=== PATIENT | female | born 1985 | race Caucasian/White ===

== ENCOUNTER 2017-06-30 17:09 | Observation (INO) | payer MEDICAID ==
[~2017-06-30] VITALS: Ht 160 cm; Wt 56.4 kg
[~2017-06-30 17:09] MED LIST: ARAV10TA PO; CLIN1GEL TOPICAL; HYDR200T3 PO; HYDR50CA PO; PRED5TAB PO; TRAZ50TA12 PO
[2017-06-30 17:56] VITALS: BP 100/55; PULSE 80; RESP 18; TEMP 98.7; O2SAT 100
--- NOTE | 2017-06-30 18:55 | RADRPT ---
EXAM DATE/TIME: 06/30/2017 18:20 [place] COMPARISON: No previous studies available for comparison. INDICATIONS : Left side chest pain. MEDICAL HISTORY : None. SURGICAL HISTORY : None. ENCOUNTER: Initial ACUITY: 1 day PAIN SCORE: 6/10 LOCATION: Left chest FINDINGS: PA and lateral views of the chest demonstrate the lungs to be symmetrically aerated without evidence of mass, infiltrate or effusion. The cardiomediastinal contours are unremarkable. Osseous structure s are intact. CONCLUSION: No acute disease. Joseph Soriano MD on June 30, 2017 at 18:53 Board Certified Radiologist. This report was verified electronically.
--- NOTE | 2017-06-30 19:15 | PD ---
HPI Chief Complaint: Chest Pain Time Seen by Provider: 19:09 Travel History International Travel<30 days: No Contact w/Intl Traveler<30days: No Traveled to known affect area: No History of Present Illness HPI The patient is a 32 year old female who presents to the [facility] emergency department with a history of chest pain that began at 9 AM. It is a pressure sensation in the left side of the upper chest that radiates to the left shoulder. It is constant. It is an 8/10 in severity. It is worse with movement and better with lying still. She denies ever having a pain like this previously. She denies having any personal history of coronary artery disease. She denies having any history of hypertension, hyperlipidemia, or diabetes mellitus. She does report having a family history of heart disease specifically in her uncle. She denies having any personal history of DVT or PE. She denies having any lower extremity edema, calf pain, or erythema. She denies having any family history of blood clots. On review of systems otherwise , she denies having any known recent fevers, cough or congestion, neck pain, abdominal pain, vomiting, diarrhea, urinary symptoms, or neurologic symptoms. LMP: 2016, s/p endometrial ablation [facility] Past Medical History Narrative Medical The patient's past medical history is significant for arthritis-unsure of type, however she discontinued all medication 6 months ago that were treating this, multiple gynecologic problems-unsure of diagnosis. Cancer: No Cardiovascular Problems: No Diabetes: No Endocrine: No Genitourinary: No Hepatitis: No Hiatal Hernia: No Immune Disorder: No Musculoskeletal: No Neurologic: No Psychiatric: No Reproductive: No Respiratory: No Thyroid Disease: No Influenza Vaccination: No ?: Not Tubal Ligation: Yes Past Surgical History Narrative Surgical The patient's past surgical history is significant for breast augmentation, bilateral tubal ligation, laparoscopy for tube and ovary, and right shoulder surgery. AICD: No Body Medical Devices: breast implants Genitourinary Surgery: Yes (lap) Joint Replacement: No Pacemaker: No Other Surgery: Yes Social History Alcohol Use: No Tobacco Use: Yes (04/07 PPD) Substance Use: No Allergies-Medications (Allergen,Severity, Reaction): Coded Allergies: No Known Allergies (Unverified , 06/23/16) Reported Meds & Prescriptions Reported Meds & Active Scripts Active Hydroxyzine Pamoate 50 Mg Cap 50 Mg PO HS Take one tab at night to help with sleep. Do not take multiple sleep medications or sedatives at the same time. Clindamax Topical (Clindamycin Phosphate) 1% Gel 1 Applic TOPICAL BID Reported Hydroxychloroquine (Hydroxychloroquine Sulfate) 200 Mg Tab 200 Mg PO BID Takw with food Arava (Leflunomide) 10 Mg Tab 10 Mg PO DAILY Trazodone (Trazodone HCl) 50 Mg Tab 50 Mg PO HS Prednisone 5 Mg Tab 5 Mg PO TID Review of Systems Except as stated in HPI: all other systems reviewed are Neg General / Constitutional: No: Fever Eyes: No: Visual changes HENT: No: Headaches Cardiovascular: Positive: Chest Pain or Discomfort Respiratory: Positive: Shortness of Breath Gastrointestinal: No: Abdominal Pain Genitourinary: No: Dysuria Musculoskeletal: No: Pain Skin: No Rash Neurologic: No: Weakness Psychiatric: No: Depression Endocrine: No: Polydipsia Hematologic/Lymphatic: No: Easy Bruising Physical Exam Narrative General: The patient is a well-developed well-nourished female in no acute distress. Head and Neck exam: Head is normocephalic atraumatic. Eyes: EOMI, pupils are equal round and reactive to light. Nose: Midline septum with pink mucous membranes Mouth: Dentition unremarkable. Moist mucus membranes. Posterior oropharynx is not erythematous. No tonsillar hypertrophy. Uvula midline. Airway patent. Neck: No palpable lymphadenopathy. No nuchal rigidity. No thyromegaly. Cardiovascular: Regular rate and rhythm without murmurs, gallops, or rubs. No pulse deficit to the extremities on simultaneous auscultation and palpation of her radial artery. The patient reports chest wall tenderness on palpation along the upper chest on the left side. There is no erythema or ecchymosis. No step-off or crepitus. No flail segment. No other rashes noted. Lungs: Clear to auscultation bilaterally. No wheezes, rhonchi, or rales. Abdomen: Soft, without tenderness to palpation in all 4 quadrants of the abdomen. No guarding, rebound, or rigidity. Normal bowel sounds are audible. No tenderness on palpation of McBurney's point. Negative Cavanaugh sign. Extremities: No clubbing, cyanosis, or edema. 2+ pulses in all 4 extremities. No calf tenderness on palpation. Back: No costovertebral angle tenderness to palpation. Neurologic Exam: Grossly nonfocal. Skin Exam: No rash noted. Intact skin that is warm and dry. Data Data Last Documented VS Vital Signs Date Time Temp Pulse Resp B/P (MAP) Pulse Ox O2 Delivery O2 Flow Rate FiO2 06/30/17 19:51 75 14 94/51 (65) 98 Room Air 06/30/17 17:56 98.7 Orders Orders Electrocardiogram (06/30/17 17:58) Basic Metabolic Panel (Bmp) (06/30/17 17:58) Ckmb (Isoenzyme) Profile (06/30/17 17:58) Complete Blood Count With Diff (06/30/17 17:58) Magnesium (Mg) (06/30/17 17:58) Prothrombin Time / Inr (Pt) (06/30/17 17:58) Act Partial Throm Time (Ptt) (06/30/17 17:58) Troponin I (06/30/17 17:58) Chest, Pa & Lat (06/30/17 17:58) D-Dimer (06/30/17 19:26) Aspirin Chew (Aspirin Chew) (06/30/17 19:30) Nitroglycerin Sl (Nitrostat Sl) (06/30/17 19:30) Sodium Chlorid 0.9% 500 Ml Inj (Ns 500 M (06/30/17 19:30) Admit Order (Ed Use Only) (06/30/17 21:05) Labs Laboratory Tests Test 06/30/17 19:35 White Blood Count 6.9 TH/MM3 Red Blood Count 4.32 MIL/MM3 Hemoglobin 13.6 GM/DL Hematocrit 40.9 % Mean Corpuscular Volume 94.6 FL Mean Corpuscular Hemoglobin 31.5 PG Mean Corpuscular Hemoglobin Concent 33.3 % Red Cell Distribution Width 13.0 % Platelet Count 164 TH/MM3 Mean Platelet Volume 9.9 FL Neutrophils (%) (Auto) 47.2 % Lymphocytes (%) (Auto) 40.4 % Monocytes (%) (Auto) 9.0 % Eosinophils (%) (Auto) 3.0 % Basophils (%) (Auto) 0.4 % Neutrophils # (Auto) 3.3 TH/MM3 Lymphocytes # (Auto) 2.8 TH/MM3 Monocytes # (Auto) 0.6 TH/MM3 Eosinophils # (Auto) 0.2 TH/MM3 Basophils # (Auto) 0.0 TH/MM3 CBC Comment DIFF FINAL Differential Comment Prothrombin Time 10.2 SEC Prothromb Time International Ratio 1.0 RATIO Activated Partial Thromboplast Time 26.6 SEC D-Dimer Quantitative (PE/DVT) LESS THAN 0.19 MG/L FEU Blood Urea Nitrogen 7 MG/DL Creatinine 0.57 MG/DL Random Glucose 78 MG/DL Calcium Level 8.7 MG/DL Magnesium Level 2.3 MG/DL Sodium Level 141 MEQ/L Potassium Level 3.7 MEQ/L Chloride Level 107 MEQ/L Carbon Dioxide Level 26.6 MEQ/L Anion Gap 7 MEQ/L Estimat Glomerular Filtration Rate 125 ML/MIN Total Creatine Kinase 78 U/L Troponin I LESS THAN 0.02 NG/ML MDM Medical Decision Making Medical Screen Exam Complete: Yes Emergency Medical Condition: Yes Medical Record Reviewed: Yes Interpretation(s) Last Impressions Chest X-Ray 06/30/17 2556 Signed Impressions: Service Date/Time: Friday, June 30, 2017 18:20 - CONCLUSION: No acute disease. Joseph Soriano MD Differential Diagnosis Acute coronary syndrome, versus costochondritis, versus muscle strain, versus pneumothorax, versus pneumonia, versus pulmonary embolism Narrative Course During the course of the patient's emergency department visit, the patient's history, examination, and differential diagnosis were reviewed with the patient. The patient was placed on a science intern with oximetry and frequent blood pressure monitoring. The patient had IV access obtained and blood work sent for analysis. The patient had a EKG done on arrival. The patient's EKG reveals sinus rhythm with a short TX interval, heart rate of 71, QRS duration is 69 ms, QTC [address] segment elevation, T waves are inverted in V1. The patient was initially provided an aspirin at 324 mg p.o. 1, trial of nitroglycerin sublingual 1. The patient reports that the pain was actually improved with nitroglycerin The patient's laboratory studies were reviewed and remarkable for a CBC that is unremarkable, basic metabolic profile is within normal limits, magnesium 2.3, cardiac enzymes within normal limit, d-dimer less than 0.19 decreasing likelihood of pulmonary embolism in this patient with no other significant risk factors, PT PTT within normal limits Radiology studies were reviewed and remarkable for a chest x-ray that shows no acute cardiopulmonary disease. The patient's results were discussed with the patient, including the plan of care. I explained that further testing and/ or monitoring is indicated based on the patient's history, examination, and/ or laboratory findings. Therefore, I recommended admission for additional evaluation. The patient expressed understanding and was agreeable with this plan. The patient was admitted to the hospital in stable condition and sent to a bed under the care of the chest pain center. Diagnosis Primary Impression: Chest pain, rule out acute myocardial infarction Admitting Information Admitting Physician Requests: Celia Bass MD Jun 30, 2017 19:15
[2017-06-30] MEDS ORDERED: ASPIRIN 81 MG CHEW TAB CHEW ONE (19:30)
[2017-06-30] MEDS ORDERED: NITROGLYCERIN 0.4 MG SL 25 TABS/BTL SL ONE (19:30)
[2017-06-30] MEDS ORDERED: SODIUM CHLORID 0.9% 500 ML INJ 500 ML IV ONE (19:30)
[2017-06-30 19:41] VITALS: BP 98/61; PULSE 71; RESP 14; O2SAT 99
[2017-06-30 19:51] VITALS: BP 94/51; PULSE 75; RESP 14; O2SAT 98
[2017-06-30 20:02] LABS: AUTOMATED NEUTROPHIL # 3.3 TH/MM3 (1.8-7.7); BASOPHIL % 0.4 % (0.0-2.0); EOSINOPHIL # 0.2 TH/MM3 (0-0.4); HEMATOCRIT 40.9 % (35.0-46.0); HEMOGLOBIN 13.6 GM/DL (11.6-15.3); LYMPH % 40.4 % (9.0-44.0); LYMPHOCYTE # 2.8 TH/MM3 (1.0-4.8); MEAN CELL VOLUME 94.6 FL (80.0-100.0); MEAN CORPUSCULAR HEMOGLOBIN 31.5 PG (27.0-34.0); MEAN CORPUSCULAR HGB CONC 33.3 % (32.0-36.0); MEAN PLATELET VOLUME 9.9 FL (7.0-11.0); MONOCYTE # 0.6 TH/MM3 (0-0.9); NEUT % 47.2 % (16.0-70.0); PLATELET COUNT 164 TH/MM3 (150-450); RED BLOOD COUNT 4.32 MIL/MM3 (4.00-5.30); WHITE BLOOD COUNT 6.9 TH/MM3 (4.0-11.0)
[2017-06-30 20:12] LABS: PROTHROMBIN TIME - PATIENT 10.2 SEC (9.8-11.6)
[2017-06-30 20:24] LABS: BICARBONATE 26.6 MEQ/L (21.0-32.0); BLOOD UREA NITROGEN 7 MG/DL (7-18); CALCIUM 8.7 MG/DL (8.5-10.1); CHLORIDE 107 MEQ/L (98-107); CREATININE 0.57 MG/DL (0.50-1.00); GLOMERULAR FILTRATION RATE 125 ML/MIN (>89); GLUCOSE,RANDOM 78 MG/DL (74-106); MAGNESIUM 2.3 MG/DL (1.5-2.5); SODIUM (NA) 141 MEQ/L (136-145)
[2017-06-30 20:28] LABS: TROPONIN I LESS THAN 0.02 NG/ML (0.02-0.05)
[2017-06-30 21:00] VITALS: BP 92/56; PULSE 72; RESP 14; O2SAT 99
[2017-06-30] MEDS ORDERED: SODIUM CHLORIDE 0.9% FLUSH 10 ML FLUSH IV FLUSH PRN (23:00)
[2017-06-30] MEDS ORDERED: ACETAMINOPHEN 500 MG CPLT PO PRN (23:00)
[2017-06-30 23:52] VITALS: BP 100/61; PULSE 72; RESP 14; O2SAT 99
[2017-07-01 00:08] LABS: TROPONIN I LESS THAN 0.02 NG/ML (0.02-0.05)
[2017-07-01 02:51] VITALS: BP 96/58; PULSE 60; RESP 14; TEMP 98.2; O2SAT 98
[2017-07-01 03:00] LABS: TROPONIN I LESS THAN 0.02 NG/ML (0.02-0.05)
[2017-07-01] MEDS ORDERED: MORPHINE SULFATE 2 MG/ML INJ IV ONE (03:30)
[2017-07-01 04:37] VITALS: PULSE 63
[2017-07-01 04:46] VITALS: BP 94/53; PULSE 65; RESP 16; TEMP 97.8; O2SAT 96
[2017-07-01 07:43] VITALS: BP 95/59; PULSE 61; RESP 16; TEMP 98.9; O2SAT 98
--- NOTE | 2017-07-01 07:57 | MB ---
cc: Lonnie Wiggins MD DATE: 07/01/2017 HISTORY OF PRESENT ILLNESS: This is a 32-year-old woman who is admitted to the chest pain center. She began having chest discomfort yesterday at approximately 10 a.m. She reports that it started in the center of her chest with some radiation to the left side. It was an aching sensation and persisted throughout the afternoon. She came to the emergency department last night and an electrocardiogram done during her episode of chest discomfort is essentially normal. She reports that approximately 4:30 this morning, her discomfort was relieved and she feels well now. No prior history of chest pain has been present. She has no cough or sputum production that was present. She denied any shortness of breath, diaphoresis or nausea. Risk factors for coronary disease include a history of smoking a half a pack of cigarettes per day. She has no history of hypertension, diabetes, or hyperlipidemia and no direct family history of coronary disease is present. PAST MEDICAL HISTORY: Significant for rheumatoid arthritis; however, this has been quiescent and she had stopped all of her medicines as of approximately 6 months ago. ALLERGIES: NONE. PAST MEDICAL HISTORY: Otherwise unremarkable. REVIEW OF SYSTEMS: Also unremarkable. SOCIAL HISTORY: As above. PHYSICAL EXAM: GENERAL: She is awake and alert. She is in no acute distress. VITAL SIGNS: Her blood pressure is 94/63, pulse is 65. HEENT: Unremarkable. NECK: There is no neck vein distention. No carotid bruits are present. LUNGS: Clear. CARDIOVASCULAR: Reveals a regular rate and rhythm. There is no significant murmur. No gallop is noted. ABDOMEN: Soft. There is no tenderness or organomegaly. EXTREMITIES: Reveal no edema. Peripheral pulses are intact. ASSESSMENT AND PLAN: The patient has had an episode of chest discomfort. No evidence for ischemia has been present in as much as her troponins have been normal x 3 and electrocardiogram is normal. I feel that her risk factors for coronary disease are minimal and the likelihood of ischemia is remote. We will allow her home with follow up with her PCP. Lonnie Wiggins MD DLW/DL , 07:30 AM , 07:55 AM
[2017-07-01 08:08] VITALS: PULSE 60
[2017-07-01] MEDS ORDERED: SODIUM CHLORIDE 0.9% FLUSH 10 ML FLUSH IV FLUSH SCH (09:00)
--- NOTE | 2017-07-01 16:39 | EKG ---
Date Performed: 07/01/2017 Time Performed: 02:26:15 PTAGE: 32 years EKG: Sinus rhythm NORMAL ECG PREVIOUS TRACING : 06/30/2017 23.37 Since previous tracing, no significant change noted DOCTOR: Lonnie Wiggins Interpretating Date/Time 07/01/2017 16:37:50
--- NOTE | 2017-07-01 16:39 | EKG ---
Date Performed: 06/30/2017 Time Performed: 23:37:55 PTAGE: 32 years EKG: Sinus rhythm BORDERLINE ECG PREVIOUS TRACING : 06/30/2017 18.46 Since previous tracing, no significant change noted DOCTOR: Lonnie Wiggins Interpretating Date/Time 07/01/2017 16:38:07
--- NOTE | 2017-07-01 16:40 | EKG ---
Date Performed: 06/30/2017 Time Performed: 18:46:34 PTAGE: 32 years EKG: Sinus rhythm WITH SHORT MD INTERVAL BORDERLINE ECG NO PREVIOUS TRACING DOCTOR: Lonnie Wiggins Interpretating Date/Time 07/01/2017 16:38:24
== END 2017-07-01 09:51 | disposition home or self-care (01) ==
LOC: NED 17:09 → NEDA 21:07 → NEDH 07-01 01:20 → NEPHCDU 07-01 02:55
PROVIDERS: ADMIT Internal Medicine Interventional Cardiology; ATTEND Internal Medicine Interventional Cardiology
DX: R07.89 Other chest pain (principal); M06.9 Rheumatoid arthritis, unspecified; F17.200 Nicotine dependence, unspecified, uncomplicated; Z79.899 Other long term (current) drug therapy; Z82.49 Family history of ischemic heart disease and other diseases of the circulatory system; R94.31 Abnormal electrocardiogram [ECG] [EKG]
CPT/HCPCS: 71046; 80048; 82550; 83735; 84484; 85025; 85379; 85610; 85730; 93005; 96361; 96374; 99285; G0378; J2270; J7040

== ENCOUNTER 2017-07-02 13:20 | Emergency (ER) | payer MEDICAID ==
[2017-07-02 13:47] VITALS: RESP 18; TEMP 98.8; O2SAT 99
[2017-07-02 13:50] VITALS: BP 100/65
--- NOTE | 2017-07-03 11:32 | EKG ---
Date Performed: 07/02/2017 Time Performed: 13:55:28 PTAGE: 32 years EKG: Sinus rhythm WITH SHORT MO INTERVAL BORDERLINE ECG PREVIOUS TRACING : 07/01/2017 02.26 Since the previous tracing, no significant change noted DOCTOR: Lonnie Wiggins Interpretating Date/Time 07/03/2017 11:27:39
== END 2017-07-02 15:30 | disposition left against medical advice (07) ==
LOC: NETRI 13:20
DX: R07.9 Chest pain, unspecified (principal); R94.31 Abnormal electrocardiogram [ECG] [EKG]; Z53.21 Procedure and treatment not carried out due to patient leaving prior to being seen by health care provider
CPT/HCPCS: 93005; 99281

== ENCOUNTER 2017-12-25 13:56 | Observation (INO) ==
[2017-12-25 14:14] VITALS: TEMP 98.4
[2017-12-25] MEDS ORDERED: Aspirin 325 MG Tablet PO ONE (15:10)
[2017-12-25 15:13] LABS: Baso % (Auto) 0.7 % (0.0-2.0); Eos # (Auto) 0.2 th/mm3 (0.0-0.4); Eos % (Auto) 3.4 % (0.0-4.0); Hematocrit 44.1 % (35.0-46.0); Hemoglobin 14.5 gm/dL (11.6-15.3); Lymph % (Auto) 29.2 % (9.0-44.0); Mean Corpuscular HGB Conc 32.9 % (32.0-36.0); Mean Corpuscular Hemoglobin 32.2 pg (27.0-34.0); Mean Corpuscular Volume 97.9 fL (80.0-100.0); Mean Platelet Volume 9.5 fL (7.0-11.0); Mono # (Auto) 0.6 th/mm3 (0.0-0.9); Mono % (Auto) 7.9 % (0.0-8.0); Neut # (Auto) 4.1 th/mm3 (1.8-7.7); Neut % (Auto) 58.8 % (16.0-70.0); Platelet Count 158 th/mm3 (150-450); Red Cell Distribution Width 12.9 % (11.6-17.2)
[2017-12-25] MEDS ORDERED: Morphine Sulfate Inj 2 MG/ML Vial IV.PUSH ONE (15:20)
--- NOTE | 2017-12-25 15:28 | XR ---
EXAM DATE: 12/25/2017 3:20 PM EDT AGE/SEX: 32 years / Female INDICATIONS: Chest pain. CLINICAL DATA: This is the patient's initial encounter. Patient reports that signs and symptoms have been present for 4 - 6 days and indicates a pain score of 9/10. MEDICAL/SURGICAL HISTORY: None. None. COMPARISON: [facility] [place], CHEST PA & LAT, 06/30/2017. . FINDINGS: A single AP view of the chest demonstrates the lungs to be symmetrically aerated without evidence of mass, infiltrate or effusion. The cardiomediastinal contours are unremarkable. Osseous structures a re intact. CONCLUSION: Negative examination. Electronically signed by: Ranulfo Hughes MD 12/25/2017 3:27 PM EDT
--- NOTE | 2017-12-25 15:34 | ED ---
HPI General Chief Complaint: Chest Pain Stated Complaint: chest pain Time Seen by Provider: 12/25/17 14:38 Source: patient Mode of arrival: ambulatory Limitations: no limitations History of Present Illness HPI narrative: Patient is a 32-year-old female that presents for the evaluation of chest pain that started 4 days ago. The patient states that the pain has been constant and is localized to the left chest and axilla. She states that the pain radiates to the left arm. She rates the pain as a 9/10 on a pain scale and does not state that anything makes the pain better or worse. The patient also reports that she decided to some into the ER today because she began to feel weak this morning and felt that she might collapse. The patient denies any loss of consciousness or syncope. Upon review of symptoms the patient states that she has been feeling more fatigued than usual. She denies fever or night sweats, but she does report feeling warmer than usual. The patient reports palpitations. She states that she is also experiencing shortness of breath upon both rest and exertion. She also reports currently having a throbbing headache that she rates a 8/10 on a pain scale. Related Data Home Medications Medication Instructions Recorded Confirmed No Known Home Medications 12/25/17 12/25/17 Allergies Allergy/AdvReac Type Severity Reaction Status Date / Time No Known Allergies Allergy Unknown Uncoded 06/30/17 22:54 Review of Systems ROS: all other systems reviewed are negative [facility] Medical History Medical History Chest pain of uncertain etiology (Acute) Surgical History Surgical History Hx of removal of ovary (Acute) Status post surgical removal of both fallopian tubes (Acute) Social History Social History Substance History: No History of Abuse Smoking Status: Never smoker How Often Do You Have a Drink Containing Alcohol: Monthly or less Recent Out of Country Travel within the Last 8 Weeks: No Immunization History Tetanus Immunization: >5 Years Hx Influenza Vaccine This Season: No Exam Narrative Exam Narrative: GENERAL: Well appearing SKIN: Focused skin assessment warm/dry. HEAD: Atraumatic. Normocephalic. EYES: Pupils equal and round. No scleral icterus. No injection or drainage. ENT: No nasal bleeding or discharge. Mucous membranes pink and moist. Tongue is midline. No uvula deviation. NECK: Trachea midline. No JVD. CARDIOVASCULAR: Regular rate and rhythm. No murmur appreciated. Some chest pain reproducible with touch. RESPIRATORY: No accessory muscle use. Mild wheezing heard especially in the left lower lung field. breath sounds equal bilaterally. GASTROINTESTINAL: Abdomen soft, non-tender, nondistended. Hepatic and splenic margins not palpable. MUSCULOSKELETAL: No obvious deformities. No clubbing. No cyanosis. No edema. NEUROLOGICAL: Awake and alert. No obvious cranial nerve deficits. Motor grossly within normal limits. Normal speech. PSYCHIATRIC: Appropriate mood and affect; insight and judgment normal. Course Initial Documented Vital Signs Temperature 98.4 F 12/25/17 14:12 Pulse Rate 79 12/25/17 14:12 Respiratory Rate 17 12/25/17 14:12 Blood Pressure 96/51 L 12/25/17 14:12 Pulse Oximetry 100 12/25/17 14:12 Last Documented Vital Signs Temperature 98.4 F 12/25/17 14:12 Pulse Rate 57 L 12/25/17 18:41 Respiratory Rate 20 12/25/17 18:41 Blood Pressure 103/53 L 12/25/17 18:41 Pulse Oximetry 99 12/25/17 18:41 Medical Decision Making REECE Attestation REECE supervised visit: Yes Attestation: The history, exam, and medical decision-making in the associated mid-level provider note were completed with my assistance. I reviewed and agree with the findings presented. I attest that I had a [id number] encounter with the patient on the same day, and personally performed and documented my assessment and findings in the medical record. *My assessment and Findings: 32-year-old woman, little bit unusual, left-sided chest pain. States the pain is moderately severe. She was seen once recently for chest pain but states his chest pain is different. Some risk factors including family history. She looks well on exam. I do not think this is dissection. D-dimer was minimally elevated so we get a CT PE study. I reviewed this, opacification appears poor, but clinically very low suspicion for PE. She had a recent chest pain center admission with serial cardiac enzymes but no evocative testing. Will await labs. Consider discharge versus observation. MDM Narrative Medical decision making narrative: 32-year-old female that presents to the ED for evaluation of left-sided chest pain. Labs and imaging order. Patient start an aspirin. Labs and imaging showed Medical Screen Exam Complete: Yes Emergency Medical Condition: Yes Differential Diagnosis Differential Diagnosis: Chest pain versus typical chest pain versus PE versus pleurisy versus costochondritis versus ACS Medical Records Medical records reviewed: Yes I reviewed the patient's medical records. Lab Data Result diagrams: 12/25/17 14:50 12/25/17 14:50 POC Results POC Urine Results Negative Lab Results 12/25/17 12/25/17 12/25/17 Range/Units 14:50 14:50 14:50 WBC 7.0 (4.0-11.0) th/mm3 RBC 4.50 (4.00-5.30) mil/mm3 Hgb 14.5 (11.6-15.3) gm/dL Hct 44.1 (35.0-46.0) % MCV 97.9 (80.0-100.0) fL MCH 32.2 (27.0-34.0) pg MCHC 32.9 (32.0-36.0) % RDW 12.9 (11.6-17.2) % Plt Count 158 (150-450) th/mm3 MPV 9.5 (7.0-11.0) fL Neut % (Auto) 58.8 (16.0-70.0) % Lymph % (Auto) 29.2 (9.0-44.0) % [place] % (Auto) 7.9 (0.0-8.0) % Eos % (Auto) 3.4 (0.0-4.0) % Baso % (Auto) 0.7 (0.0-2.0) % Neut # (Auto) 4.1 (1.8-7.7) th/mm3 Lymph # (Auto) 2.0 (1.0-4.8) th/mm3 [place] # (Auto) 0.6 (0.0-0.9) th/mm3 Eos # (Auto) 0.2 (0.0-0.4) th/mm3 Baso # (Auto) 0.0 (0.0-0.2) th/mm3 WBC Differential . Differential Comment Auto diff final D-Dimer Quant (PE/DVT) 0.51 H (0.00-0.50) mg/L FEU Sodium 141 (136-145) meq/L Potassium 3.7 (3.5-5.1) meq/L Chloride 107 (98-107) meq/L Carbon Dioxide 24.2 (21.0-32.0) meq/L Anion Gap 10 (5-15) meq/L BUN 8 (7-18) mg/dL Creatinine 0.62 (0.50-1.00) mg/dL Estimated GFR Greater than 89 (>89) mL/min Random Glucose 78 (74-106) mg/dL Calcium 8.8 (8.5-10.1) mg/dL Total Bilirubin 0.2 (0.2-1.0) mg/dL AST 14 L (15-37) U/L ALT 14 (10-53) U/L Alkaline Phosphatase 75 (45-117) U/L Total Creatine Kinase 68 (26-192) U/L Troponin I Less than 0.02 L (0.02-0.05) ng/mL Total Protein 7.6 (6.4-8.2) g/dL Albumin 3.9 (3.4-5.0) g/dL Lipase 106 (73-393) U/L Imaging Data Radiologist's impression: Chest X-Ray 12/25/17 14:45 CONCLUSION: Negative examination. Chest CTA 12/25/17 15:29 CONCLUSION: 1. Suboptimal contrast bolus but no central filling defects identified to suggest pulmonary embolus. Discharge Plan Discharge Disposition Patient Disposition: Against Medical Advice Discharge Condition Condition: Stable Discharge Order Discharge Orders: AMA Discharge (Routine); Ordered 12/25/17 Ordered By: Chandrakant Peralta Discharge Details Anticipated Discharge Date: 12/25/17 Diagnosis: Atypical chest pain Physicians Team ED Provider: Jay Donato ED Midlevel Provider: Chandrakant Peralta Primary Care Provider: UNKNOWN, Attending Provider: Lonnie Wiggins Discharge Interventions Interventions: Vital Signs Last Done: 12/25/17 18:41 Status ED Status: Admitted Observation Patient
[2017-12-25 15:56] LABS: Alanine Aminotransferase 14 U/L (10-53); Albumin 3.9 g/dL (3.4-5.0); Anion Gap 10 meq/L (5-15); Aspartate Aminotransferase 14 U/L (15-37); Blood Urea Nitrogen 8 mg/dL (7-18); Calcium 8.8 mg/dL (8.5-10.1); Carbon Dioxide 24.2 meq/L (21.0-32.0); Chloride 107 meq/L (98-107); Glomerular Filtration Rate Greater Than 89 mL/min (>89); Glucose,Random 78 mg/dL (74-106); Lipase 106 U/L (73-393); Potassium 3.7 meq/L (3.5-5.1); Sodium 141 meq/L (136-145)
[2017-12-25 15:59] LABS: Alkaline Phosphatase 75 U/L (45-117); Total Protein 7.6 g/dL (6.4-8.2)
[2017-12-25 16:03] LABS: Creatine Kinase 68 U/L (26-192)
[2017-12-25 16:09] VITALS: O2SAT 99
[2017-12-25 18:41] VITALS: BP 103/53; PULSE 57; RESP 20
--- NOTE | 2017-12-25 19:06 | CT ---
EXAM DATE: 12/25/2017 6:28 PM EDT AGE/SEX: 32 years / Female INDICATIONS: Chest pain that radiates down left arm. CLINICAL DATA: This is the patient's initial encounter. Patient reports that signs and symptoms have been present for 4 - 6 days and indicates a pain score of 3/10. MEDICAL/SURGICAL HISTORY: None. None. RADIATION DOSE: 7.00 CTDI (mGy) COMPARISON: No prior exams available for comparison. TECHNIQUE: Volumetric scanning was performed using a multi-row detector CT scanner during bolus infu prakash of 140 ml Omnipaque 350 (iohexol) nonionic water-soluble contrast as a single exam dose. The da ta was post processed with a variety of visualization algorithms including full volume maximum intens ity projection and sliding thin slab reformation. Using automated exposure control and adjustment of the mA and/or kV according to patient size, radiation dose was kept as low as reasonably achievable to obtain optimal diagnostic quality images. DICOM format image data is available electronically for review and comparison. FINDINGS: Contrast bolus is suboptimal but no central filling defects are identified. Lungs clear except dependent atelectasis. No pleural or pericardial fluid. Breast augmentation. No ad enopathy. No acute findings in the upper abdomen. CONCLUSION: 1. Suboptimal contrast bolus but no central filling defects identified to suggest pulmonary embolus. Electronically signed by: Oseas Jeffrey MD 12/25/2017 7:05 PM EDT
[2017-12-25] MEDS ORDERED: Morphine Inj 4 MG/ML Vial IV.PUSH PRN (19:58)
[2017-12-25] MEDS ORDERED: Acetaminophen 500 MG Tablet PO PRN (19:58)
--- NOTE | 2017-12-26 14:41 | ECG ---
Date Performed: 12/25/2017 Time Performed: 14:38:41 PTAGE: 32 years EKG: Sinus rhythm WITH SHORT WA INTERVAL POSSIBLE RIGHT VENTRICULAR CONDUCTION DELAY BORDERLINE ECG Since the PREVIOUS TRACING , no significant change noted PREVIOUS TRACIN07/02/2017 13.55 DOCTOR: Ruth Hinds Interpretating Date/Time 12/26/2017 14:35:26
== END 2017-12-25 21:33 | disposition left against medical advice (07) ==
LOC: NEPE 13:56 → NEDA 13:56
PROVIDERS: ADMIT Internal Medicine Cardiovascular Disease; ATTEND Internal Medicine Cardiovascular Disease